=== PATIENT | female | born 1965 | race Caucasian/White ===

== ENCOUNTER 2021-05-13 13:21 | Emergency (ER) | payer OTHER ==
[~2021-05-13 13:21] MED LIST: FLEXERIL 10 MG10 MG PO; NAPROSYN500 MG PO
[2021-05-13 14:35] LABS: HEMOGLOBIN 16.5 gm/dl (12.3-15.3); RED BLOOD COUNT 5.11 M/UL (4.00-5.10); WHITE BLOOD COUNT 3.7 K/UL (4.5-11.0)
[2021-05-13 15:05] LABS: BUN/CREATININE RATIO 15 (0-10)
== END 2021-05-13 19:01 | disposition home or self-care (01) ==
LOC: ER1 13:21
PROVIDERS: Family Medicine
DX: I95.9 Hypotension, unspecified (principal); R41.82 Altered mental status, unspecified; I10 Essential (primary) hypertension; J44.9 Chronic obstructive pulmonary disease, unspecified
CPT/HCPCS: 70450; 71045; 80053; 80307; 82550; 82553; 83874; 84484; 85025; 93005; 99285; J7030

== ENCOUNTER 2021-10-18 19:00 | Emergency (ER) | payer OTHER ==
[2021-10-18 20:12] LABS: HEMOGLOBIN 16.4 gm/dl (12.3-15.3); WHITE BLOOD COUNT 11.1 K/UL (4.5-11.0)
[2021-10-18 20:26] LABS: BUN/CREATININE RATIO 28 (0-10)
[2021-10-18] MEDS ORDERED: FLOMAX 0.4 MG0.4 MG PO (23:32)
[2021-10-18] MEDS ORDERED: ZOFRAN ODT 4 MG4 MG PO (23:32)
[2021-10-18] MEDS ORDERED: PERCOCET 5-3251 EACH PO (23:32)
== END 2021-10-19 00:28 | disposition home or self-care (01) ==
LOC: ER1 19:00
PROVIDERS: Physician Assistant Medical
DX: N13.2 Hydronephrosis with renal and ureteral calculous obstruction (principal); R11.2 Nausea with vomiting, unspecified; E78.5 Hyperlipidemia, unspecified; Z88.8 Allergy status to other drugs, medicaments and biological substances; F17.200 Nicotine dependence, unspecified, uncomplicated
CPT/HCPCS: 80053; 81001; 83690; 85025; 85652; 86140; 87086; 96374; 96375; 99284; J1885; J2405; Q9967

== ENCOUNTER → 2021-11-26 | Outpatient (CLI) | payer OTHER ==
[~2021-11-26] MED LIST changes: +FLOMAX 0.4 MG0.4 MG PO; +PERCOCET 5-3251 EACH PO; +ZOFRAN ODT 4 MG4 MG PO
== END ==
LOC: EXRD 14:10
DX: N20.0 Calculus of kidney (principal)
CPT/HCPCS: 74018

== ENCOUNTER 2021-12-16 19:56 | Emergency (ER) | payer OTHER ==
[2021-12-16 23:00] LABS: BUN/CREATININE RATIO 19 (0-10)
[2021-12-16 23:20] LABS: HEMOGLOBIN 14.8 gm/dl (12.3-15.3); RED BLOOD COUNT 4.63 M/UL (4.00-5.10); WHITE BLOOD COUNT 21.5 K/UL (4.5-11.0)
[2021-12-17] MEDS ORDERED: AZITHROMYCIN250 MG PO (00:04)
[2021-12-17] MEDS ORDERED: PREDNISONE20 MG PO (00:04)
[2021-12-17] MEDS ORDERED: OMNICEF 300 MG300 MG PO (00:04)
[2021-12-17] MEDS ORDERED: IPRAT-ALBUT 0.5-3 ML INH (00:04)
== END 2021-12-17 | disposition home or self-care (01) ==
LOC: ER1 19:56
PROVIDERS: Family Medicine; Physician Assistant
DX: S09.90XA Unspecified injury of head, initial encounter (principal); R07.81 Pleurodynia; J44.1 Chronic obstructive pulmonary disease with (acute) exacerbation; F17.200 Nicotine dependence, unspecified, uncomplicated; R00.0 Tachycardia, unspecified; M54.50 Low back pain, unspecified; J18.9 Pneumonia, unspecified organism; Z20.822 Contact with and (suspected) exposure to COVID-19; D72.829 Elevated white blood cell count, unspecified; I10 Essential (primary) hypertension; Z99.81 Dependence on supplemental oxygen; W10.9XXA Fall (on) (from) unspecified stairs and steps, initial encounter; Y92.009 Unspecified place in unspecified non-institutional (private) residence as the place of occurrence of the external cause
CPT/HCPCS: 36600; 70450; 71045; 72125; 72128; 72131; 80053; 82550; 82553; 82803; 83605; 83880; 84484; 85025; 87040; 93005; 94664; 96374; 96375; 99284; J0696; J2930; Q9967; U0002

== ENCOUNTER 2022-01-10 15:00 | Inpatient (IN) | payer OTHER ==
[~2022-01-10] VITALS: Ht 165.1 cm; Wt 81.2 kg
[~2022-01-10 15:00] MED LIST changes: +AZITHROMYCIN250 MG PO; +IPRAT-ALBUT 0.5-3 ML INH; +OMNICEF 300 MG300 MG PO; +PREDNISONE20 MG PO
[2022-01-10 15:53] LABS: HEMOGLOBIN 13.2 gm/dl (12.3-15.3); RED BLOOD COUNT 4.26 M/UL (4.00-5.10); WHITE BLOOD COUNT 7.4 K/UL (4.5-11.0)
[2022-01-10 17:33] LABS: BUN/CREATININE RATIO 21 (0-10)
[2022-01-11] MEDS ORDERED: LIPITOR80 MG PO (02:58)
[2022-01-11] MEDS ORDERED: MONTELUKAST SOD10 MG PO (02:58)
[2022-01-11] MEDS ORDERED: LEVOCETIRIZINE D5 MG PO (03:00)
[2022-01-11 06:20] LABS: HEMOGLOBIN 11.8 gm/dl (12.3-15.3); RED BLOOD COUNT 3.87 M/UL (4.00-5.10); WHITE BLOOD COUNT 7.7 K/UL (4.5-11.0)
--- NOTE | 2022-01-11 06:26 | NUR ---
SCDS APPLIED TO PATIENT @ [id number]
[2022-01-11 06:46] LABS: BUN/CREATININE RATIO 35 (0-10)
[2022-01-11] MEDS ORDERED: MEDROL4 MG PO (12:31)
== END 2022-01-11 16:00 | disposition home or self-care (01) | DRG 189 ==
LOC: ER1 15:00 → M/S 21:22 → CDU 21:22 → M/S 01-11 02:17
PROVIDERS: Physician Assistant; ADMIT Internal Medicine
DX: J96.21 Acute and chronic respiratory failure with hypoxia (principal); J44.1 Chronic obstructive pulmonary disease with (acute) exacerbation; J44.0 Chronic obstructive pulmonary disease with (acute) lower respiratory infection; Z20.822 Contact with and (suspected) exposure to COVID-19; I25.10 Atherosclerotic heart disease of native coronary artery without angina pectoris; J20.9 Acute bronchitis, unspecified; E78.5 Hyperlipidemia, unspecified; I10 Essential (primary) hypertension; J45.909 Unspecified asthma, uncomplicated; R04.0 Epistaxis; F17.200 Nicotine dependence, unspecified, uncomplicated; Z99.81 Dependence on supplemental oxygen; Z88.1 Allergy status to other antibiotic agents; Z88.8 Allergy status to other drugs, medicaments and biological substances; Z85.828 Personal history of other malignant neoplasm of skin
CPT/HCPCS: 0240U; 36415; 36600; 70486; 71045; 80053; 81001; 82550; 82553; 82803; 83605; 83735; 83874; 84484; 84703; 85025; 85379; 87040; 87086; 93005; G0378; J0456; J0696; J2930; J7030

== ENCOUNTER 2022-03-11 20:28 | Emergency (ER) | payer OTHER ==
[~2022-03-11 20:28] MED LIST changes: +LEVOCETIRIZINE D5 MG PO; +LIPITOR80 MG PO; +MEDROL4 MG PO; +MONTELUKAST SOD10 MG PO
[2022-03-11 21:08] LABS: HEMOGLOBIN 14.1 gm/dl (12.3-15.3); RED BLOOD COUNT 4.58 M/UL (4.00-5.10); WHITE BLOOD COUNT 14.8 K/UL (4.5-11.0)
[2022-03-11 21:24] LABS: BUN/CREATININE RATIO 21 (0-10)
[2022-03-11] MEDS ORDERED: OMNICEF 300 MG300 MG PO (22:30)
[2022-03-11] MEDS ORDERED: ZITHROMAX250 MG PO (22:30)
== END 2022-03-11 23:15 | disposition home or self-care (01) ==
LOC: ER1 20:28
PROVIDERS: Family Medicine
DX: R10.32 Left lower quadrant pain (principal); J44.0 Chronic obstructive pulmonary disease with (acute) lower respiratory infection; J18.9 Pneumonia, unspecified organism; I95.9 Hypotension, unspecified; F17.200 Nicotine dependence, unspecified, uncomplicated
CPT/HCPCS: 71045; 80053; 83605; 83690; 85025; 85379; 85610; 93005; 96365; 99285; J0696; J2543; J3370; J7030; Q9967